=== PATIENT | female | born 1965 | race Caucasian/White ===

== ENCOUNTER 2022-02-21 10:05 | Emergency (ER) | payer OTHER ==
[~2022-02-21] VITALS: Ht 160 cm; Wt 78.9 kg
[2022-02-21] MEDS ORDERED: EFFE75CA2 PO (10:42)
[2022-02-21] MEDS ORDERED: BOOSTRIX/ADACEL VACCINE (DIPHTH/PERTUSS/ACELL/TETANUS) 0.5ML SYR IM ONE (14:05)
[2022-02-21] MEDS ORDERED: BACT800T5 PO (14:09)
[2022-02-21 14:20] VITALS: BP 138/52
[2022-02-21] MEDS ORDERED: NEOSPORIN OINT 0.9 GM PKT TOP ONE (14:20)
== END 2022-02-21 14:25 | disposition home or self-care (01) ==
LOC: M ED 10:05
DX: S61.215A Laceration without foreign body of left ring finger without damage to nail, initial encounter (principal); L03.012 Cellulitis of left finger; W26.8XXA Contact with other sharp object(s), not elsewhere classified, initial encounter; Y92.009 Unspecified place in unspecified non-institutional (private) residence as the place of occurrence of the external cause; F32.A Depression, unspecified; F41.9 Anxiety disorder, unspecified